=== PATIENT | male | born 2000 | race Caucasian/White ===

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

== ENCOUNTER 2020-06-28 13:10 | Emergency (ER) | payer BC, SELFPAY ==
[2020-06-28 13:20] VITALS: BP 147/96; PULSE 87; RESP 19; TEMP 36.8; O2SAT 98; BMI 34.0
--- NOTE | 2020-06-28 13:30 | XR_ITS ---
PROCEDURE: XR HAND RT MIN 3V CLINICAL INDICATION: INJURED THUMB Pain COMPARISON: CR HANDL3 HAND-LT-3 VIEWS from 04/13/2015 FINDINGS: No fracture or dislocation. No lytic or blastic change. There is normal mineralization. The joint spaces are well-preserved. No significant degenerative/arthritic changes. No erosive changes evident. Other findings:None. IMPRESSION: No acute findings. Dictated by: Kenroy Lubin MD 06/28/2020 14:13 Kenroy Lubin MD in [place] 06/28/2020 14:13
--- NOTE | 2020-06-28 13:47 | HMH.EDUTC ---
[facility] – [place], [place] Disposition Clinical Impression: Nailbed contusion, finger Qualifiers: Encounter type: initial encounter Qualified Code(s): S60.10XA - Contusion of unspecified finger with damage to nail, initial encounter Disposition: Home, Self-Care Condition on Discharge: Good Instructions: How To Perform RICE (Rest, Ice, Compress, Elevate) Additional Instructions: *RICE, Rest the extremity, Ice 15-20 minutes 3-4 times daily, Compress- wear the kody wrap as discussed as much as possible to help reduce swelling and pain, Elevate the extremity when at rest *Kody wrap/Finger splint is for support and help control swelling, use it except in the shower. Be sure that is not to tight but not to loose either *Elevate when resting *Ibuprofen every 6-8 hours as needed for pain an inflammation. If need something more can take Tylenol in between doses of Ibuprofen to help Immediately follow up with your family doctor for new or worsening of symptoms, or no noticeable improvement over the next 3-5 days Follow up with Family Doctor if needed Return if needed Do not pick or pull at your fingernail it may fall off Referrals: Elivra Gamboa MD [Primary Care Provider] - As needed Forms: Work/School Release Time of Disposition: 14:28 Medical Decision Making - Fede Inquiry Pt receiving controlled substance: No Fede was queried for this patient: No Vital Signs: 06/28/20 13:20 Temperature 98.2 F Temperature Source Oral Pulse Rate [Right Brachial] 87 Respiratory Rate 19 Blood Pressure [Right Arm] 147/96 H Blood Pressure Mean [Right Arm] 113 Blood Pressure Source [Right Arm] Automatic Cuff Blood Pressure Position [Right Arm] Sitting 02 Sat by Pulse Oximetry 98 Oxygen Delivery Method Room Air [facility] – [place], [place] HPI - General Stated complaint: AO [id number] rt thumb injury Time Seen by Provider: 06/28/20 13:51 Mode of Arrival: Ambulatory Source of Information: Patient Limitations: No Limitations Description of Symptoms (Recalled from Triage Doc. by RN): PATIENT C/O PAIN AND BRUISING TO RIGHT THUMB AFTER HE SMASHED IT IN VEHICLE DOOR LAST NIGHT AT 2130 HEENT Symptoms (Recalled from RN notes): No Resp Symptoms (Recalled from RN notes): No Skin Symptoms (Recalled from RN notes): No MS Symptoms (Recalled from RN notes): Yes Functional Status (Recalled from RN notes): WNL - History of Present Illness Provider Complaint: Patient state that he accidnently shut his thumb up in door last night around 930pm State that ever since he has been having throbbing pressure like feeling in right thumbnail and noticed under his fingernail looked black and hurts when he bends his thumb so he came in to get it checked - Related Data Home Medications Medication Instructions Recorded Confirmed lisinopriL [Lisinopril] 20 mg PO DAILY 06/28/20 06/28/20 Allergies Allergy/AdvReac Type Severity Reaction Status Date / Time No Known Allergies Allergy Unverified 01/23/17 15:11 - Worker's Comp Is this a Worker's Comp case?: No [facility] History - Hepatitis A Screen Drug use history?: No High risk sexual behaviors?: No History of sexually transmitted infection?: No Currently employed?: No Childcare worker?: No Do you have indoor plumbing?: Yes Do you have electricity?: Yes Attestation statement:: This patient has been screened for Hepatitis A risk factors. I have reviewed the patient's past medical history: Yes Medical History: Denies:: Diabetes Mellitus Type 1, Diabetes Mellitus Type 2 Laterality Cases: Bilateral: Myringotomy (Ear Tubes), Tonsillectomy - Social History Alcohol Intake: never Occupational Status: other ROS Obtained: Yes All systems reviewed & no additional complaints, Yes Systems reviewed as appropriate & no additional complaints - Constitutional Constitutional: Reports system reviewed and no additional complaints, except as docu - ENT Ears, Nose, Mouth, and Throat: Reports system reviewed and no additional complaints, except as docu -
[2020-06-28 14:34] VITALS: BP 147/96; PULSE 87; RESP 19; TEMP 36.8; O2SAT 98
== END 2020-06-28 14:36 | disposition home or self-care (01) ==
PROVIDERS: Emergency Provider Nurse Practitioner; PCP Family Medicine
DX: S60.111A Contusion of right thumb with damage to nail, initial encounter (principal); W23.0XXA Caught, crushed, jammed, or pinched between moving objects, initial encounter; Y92.89 Other specified places as the place of occurrence of the external cause; I10 Essential (primary) hypertension
CPT/HCPCS: 11740; 73130; 99202; G0463

== ENCOUNTER 2021-02-12 15:32 | Emergency (ER) | payer BC, SELFPAY ==
--- NOTE | 2021-02-12 16:49 | XR_ITS ---
PROCEDURE INFORMATION: Exam: XR Left Hand Exam date and time: 02/12/2021 4:49 PM Age: 20 years old Clinical indication: Injury or trauma; Fall; Blunt trauma (contusions or hematomas); Wrist; Left; Injury date: 02/10/21 TECHNIQUE: Imaging protocol: XR Left hand. Views: 3 or more views. COMPARISON: CR HANDL3 HAND-LT-3 VIEWS* 04/13/2015 6:49 PM FINDINGS: Bones/joints: Bones appear intact and normally aligned with normal mineralization. No significant arthritic deformities. There are no lytic skeletal lesions seen. Soft tissues: Soft tissue swelling. No radiopaque foreign bodies. No pathologic soft tissue calcification. IMPRESSION: No acute fracture or dislocation.
--- NOTE | 2021-02-12 16:49 | XR_ITS ---
PROCEDURE INFORMATION: Exam: XR Left Wrist Exam date and time: 02/12/2021 4:49 PM Age: 20 years old Clinical indication: Injury or trauma; Fall; Blunt trauma (contusions or hematomas); Wrist; Left; Injury date: 02/10/21 TECHNIQUE: Imaging protocol: XR Left wrist. Views: 3 or more views. COMPARISON: CR WRL3 WRIST-3 VIEWS-LT 11/05/2014 9:46 AM FINDINGS: Bones/joints: Bones appear intact and normally aligned with normal mineralization. No significant arthritic deformities. There are no lytic skeletal lesions seen. Soft tissues: Soft tissue swelling. No radiopaque foreign bodies. No pathologic soft tissue calcification. IMPRESSION: No acute fracture or dislocation.
[2021-02-12 17:50] VITALS: BP 164/90; PULSE 84; RESP 18; TEMP 36.7; O2SAT 99; BMI 35.9
--- NOTE | 2021-02-12 18:15 | HMH.EDUTC ---
[facility] – [place] Clinical Impression: Wrist sprain Qualifiers: Encounter type: initial encounter Laterality: left Qualified Code(s): S63.502A - Unspecified sprain of left wrist, initial encounter Disposition: Home, Self-Care Condition on Discharge: Good Instructions: Wrist Sprain, DI for Wrist Sprain, How To Perform RICE (Rest, Ice, Compress, Elevate) Additional Instructions: *RICE, Rest the extremity, Ice 15-20 minutes 3-4 times daily, Compress- wear the kody wrap as discussed as much as possible to help reduce swelling and pain, Elevate the extremity when at rest *Kody wrap/Velcro wrist splint is for support and help control swelling, use it except in the shower. Be sure that is not to tight but not to loose either *Elevate when resting *Ibuprofen every 6-8 hours as needed for pain an inflammation. If need something more can take Tylenol in between doses of Ibuprofen to help Immediately follow up with your family doctor for new or worsening of symptoms, or no noticeable improvement over the next 3-5 days Referrals: Elvira Gamboa MD [Primary Care Provider] - As needed Time of Disposition: 18:25 Medical Decision Making - Fede Inquiry Pt receiving controlled substance: No Fede was queried for this patient: No Vital Signs: 02/12/21 17:50 02/12/21 18:28 Temperature 98.1 F 98.1 F Temperature Source Oral Pulse Rate 84 Pulse Rate [Right Brachial] 84 Respiratory Rate 18 18 Blood Pressure 164/90 H Blood Pressure [Right Arm] 164/90 H Blood Pressure Mean [Right Arm] 114 Blood Pressure Source [Right Arm] Automatic Cuff Blood Pressure Position [Right Arm] Sitting 02 Sat by Pulse Oximetry 99 Oxygen Delivery Method Room Air - Radiology Data #1 Image(s): Hand (left) Image Reviewed: Yes I have reviewed radiologist's interpretation Preliminary Findings: No Fracture Seen IMPRESSION: No acute fracture or dislocation. #2 Image(s): Wrist (left) Image Reviewed: Yes I have reviewed radiologist's interpretation Preliminary Findings: No Fracture Seen IMPRESSION: No acute fracture or dislocation. [facility] [place] HPI - General Stated complaint: a/o fell down stairs 02/10 knot on left wrist Time Seen by Provider: 02/12/21 18:16 Mode of Arrival: Ambulatory Source of Information: Patient Limitations: No Limitations Description of Symptoms (Recalled from Triage Doc. by RN): PATIENT C/O PAIN TO LEFT FOREARM/WRIST AFTER FALLING DOWN STEPS SUNDAY NIGHT HEENT Symptoms (Recalled from RN notes): No Resp Symptoms (Recalled from RN notes): No Skin Symptoms (Recalled from RN notes): No MS Symptoms (Recalled from RN notes): Yes Functional Status (Recalled from RN notes): WNL - History of Present Illness Provider Complaint: Patient state that on he slipped and fell and landed on his left wrist State that ever since he feels like he has a knot on the wrist and hurts with certain ways he moves it State that today he went to lift something and had pain so he came in to get it checked - Related Data Home Medications Medication Instructions Recorded Confirmed lisinopriL [Lisinopril] 20 mg PO DAILY 06/28/20 06/28/20 Allergies Allergy/AdvReac Type Severity Reaction Status Date / Time No Known Allergies Allergy Unverified 01/23/17 15:11 - Worker's Comp Is this a Worker's Comp case?: No [facility] History - Hepatitis A Screen Drug use history?: No High risk sexual behaviors?: No History of sexually transmitted infection?: No Currently employed?: No Childcare worker?: No Do you have indoor plumbing?: Yes Do you have electricity?: Yes Attestation statement:: This patient has been screened for Hepatitis A risk factors. I have reviewed the patient's past medical history: Yes Medical History: Denies:: Diabetes Mellitus Type 1, Diabetes Mellitus Type 2 Laterality Cases: Bilateral: Myringotomy (Ear Tubes), Tonsillectomy - Social History Alcohol Intake: never Occupational Status: other ROS Obta
[2021-02-12 18:28] VITALS: BP 164/90; PULSE 84; RESP 18; TEMP 36.7; O2SAT 99
--- NOTE | 2021-02-12 18:38 | PC.NURSE ---
PATIENT EDUCATED ON WEARING VELCRO WRIST SPLINT. PATIENT ADVISED TO WATCH FOR CIRCULATION ISSUES TO HAND AND TO LOOSEN/REMOVE SPLINT IF NEEDED
== END 2021-02-12 18:38 | disposition home or self-care (01) ==
PROVIDERS: Emergency Provider Nurse Practitioner; PCP Family Medicine
DX: S63.502A Unspecified sprain of left wrist, initial encounter (principal); W10.9XXA Fall (on) (from) unspecified stairs and steps, initial encounter; Y92.019 Unspecified place in single-family (private) house as the place of occurrence of the external cause
CPT/HCPCS: 29125; 73110; 73130; 99202; G0463

== ENCOUNTER 2021-03-05 14:09 | Emergency (ER) | payer BC, SELFPAY ==
--- NOTE | 2021-03-05 14:51 | XR_ITS ---
PROCEDURE INFORMATION: Exam: XR Chest Exam date and time: 03/05/2021 2:51 PM Age: 21 years old Clinical indication: Pain; Chest pressure; Patient HX: C. P. , Stiffness; Additional info: SOB TECHNIQUE: Imaging protocol: XR of the chest. Views: 2 views. COMPARISON: CSWO CT CERVICAL SPINE W/O CONT 09/18/2015 2:03 AM FINDINGS: Lungs: Unremarkable. No consolidation. Pleural spaces: Unremarkable. No pleural effusion. No pneumothorax. Heart/Mediastinum: Unremarkable. No cardiomegaly. Bones/joints: Unremarkable. IMPRESSION: No acute findings.
[2021-03-05 14:53] VITALS: BP 143/91; PULSE 95; RESP 18; TEMP 37; O2SAT 96; BMI 35.9
--- NOTE | 2021-03-05 15:13 | HMH.EDUTC ---
[facility] – [place] Disposition Clinical Impression: Acute bronchitis Qualifiers: Bronchitis organism: unspecified organism Qualified Code(s): J20.9 - Acute bronchitis, unspecified Thoracic back pain Qualifiers: Chronicity: acute Back pain laterality: bilateral Qualified Code(s): M54.6 - Pain in thoracic spine Disposition: Home, Self-Care Condition on Discharge: Good Instructions: Acute Bronchitis, DI for Acute Bronchitis, DI for COVID-19 (Suspected or Confirmed ), Preventing the Spread of Coronavirus Discharge Instructions Additional Instructions: Drink plenty of fluids. Take tylenol or ibuprofen for pain or fever. Take the medications as directed. Follow up with your regular doctor. GO TO THE ER FOR ANY WORSENING SYMPTOMS Quarantine until you know the results of your covid-19 test. Notify your school or workplace of your results and follow their instructions regarding return to work/school. Prescriptions: Brompheniramine/Pseudoephed/Dm [Bromfed Dm Cough Syrup] 5 ml PO Q6HP PRN #240 ml PRN Reason: Cough Transmission Status: Received by [facility] Amoxicillin/Potassium Clav [Augmentin 875-125 Tablet] 1 tab PO Q12H 10 Days #20 tab Transmission Status: Received by [facility] methylPREDNISolone [Medrol] 4 mg PO DIRECTED 6 Days #21 packet Transmission Status: Received by [facility] guaiFENesin [Mucinex 600mg tablet] 1 - 2 tab PO BIDP PRN #30 tab PRN Reason: Congestion Transmission Status: Received by [facility] Referrals: Elvira Gamboa MD [Primary Care Provider] - Forms: Work/School Release Time of Disposition: 15:47 Medical Decision Making - Medical Records Medical records reviewed: No: I reviewed the patient's medical records. - Fede Inquiry Pt receiving controlled substance: No Vital Signs: 03/05/21 14:53 03/05/21 15:55 Temperature 98.6 F 98.6 F Temperature Source Oral Pulse Rate 95 H Pulse Rate [Left] 95 H Respiratory Rate 18 18 Blood Pressure 143/91 H Blood Pressure [Right Arm] 143/91 H Blood Pressure Mean [Right Arm] 108 02 Sat by Pulse Oximetry 96 - Lab Data Lab results reviewed: Yes: I reviewed the patient's lab results. [facility] [place] HPI - General Stated complaint: upper back pain Time Seen by Provider: 03/05/21 15:14 Mode of Arrival: Ambulatory Source of Information: Patient Limitations: No Limitations Description of Symptoms (Recalled from Triage Doc. by RN): pt c/o SOA and back pain. pt is concerned he may have pneumonia. HEENT Symptoms (Recalled from RN notes): No Resp Symptoms (Recalled from RN notes): Yes (SOA) Skin Symptoms (Recalled from RN notes): No MS Symptoms (Recalled from RN notes): No Functional Status (Recalled from RN notes): wnl - History of Present Illness Provider Complaint: He c/o pleuritic type pain in his middle back for the past 2 days. He has a cough and chest congestion also. He has a history of getting pneumonia easily so he came in to be checked. He denies fever but he has had some chilling. He has been vaccinated against covid-19. - Related Data Home Medications Medication Instructions Recorded Confirmed lisinopriL [Lisinopril] 20 mg PO DAILY 06/28/20 06/28/20 Previous Rx's Medication Instructions Recorded Amoxicillin/Potassium Clav 1 tab PO Q12H 10 Days #20 tab 03/05/21 [Augmentin 875-125 Tablet] Brompheniramine/Pseudoephed/Dm 5 ml PO Q6HP PRN #240 ml 03/05/21 [Bromfed Dm Cough Syrup] guaiFENesin [Mucinex 600mg tablet] 1 - 2 tab PO BIDP PRN #30 tab 03/05/21 methylPREDNISolone [Medrol] 4 mg PO DIRECTED 6 Days #21 03/05/21 packet Allergies Allergy/AdvReac Type Severity Reaction Status Date / Time No Known Allergies Allergy Unverified 01/23/17 15:11 - Worker's Comp Is this a Worker's Comp case?: No [facility] History - Hepatitis A Screen Drug use history?: No High risk sexual behaviors?: No History of sexually transmitted infection?: No Currently employed?: No
[2021-03-05 15:55] VITALS: BP 143/91; PULSE 95; RESP 18; TEMP 37
== END 2021-03-05 16:06 | disposition home or self-care (01) ==
PROVIDERS: Emergency Provider Nurse Practitioner Family; PCP Family Medicine
DX: J20.9 Acute bronchitis, unspecified (principal); M54.6 Pain in thoracic spine
CPT/HCPCS: 71046; 99202; C9803; G0463; U0003; U0005

== ENCOUNTER 2021-04-05 17:53 | Emergency (ER) | payer OTHER, SELFPAY ==
[2021-04-05 18:03] VITALS: BMI 25.0
--- NOTE | 2021-04-05 18:03 | XR_ITS ---
PROCEDURE INFORMATION: Exam: XR Right Foot Exam date and time: 04/05/2021 6:03 PM Age: 21 years old Clinical indication: Injury or trauma; Blunt trauma; Injury details: Horse stepped on right foot yesterday. Right fifth toe pain. ; Additional info: Horse stepped on foot TECHNIQUE: Imaging protocol: XR Right foot. Views: 3 or more views. COMPARISON: CR TIBIART XR tibia fibula RT 2V 02/08/2018 1:12 PM FINDINGS: Bones/joints: Normal. Soft tissues: Normal. IMPRESSION: No acute findings.
[2021-04-05 18:32] VITALS: BP 140/90; PULSE 88; RESP 16; TEMP 37.1; O2SAT 98; BMI 33.3
--- NOTE | 2021-04-05 18:58 | HMH.EDUTC ---
[facility] – [place] Disposition Clinical Impression: Foot contusion Qualifiers: Encounter type: initial encounter Laterality: right Qualified Code(s): S90.31XA - Contusion of right foot, initial encounter Disposition: Home, Self-Care Condition on Discharge: Good Instructions: How To Perform RICE (Rest, Ice, Compress, Elevate) Additional Instructions: *weight bearing as tolerated *RICE, Rest the extremity, Ice 15-20 minutes 3-4 times daily, Compress- wear the kody wrap as discussed as much as possible to help reduce swelling and pain, Elevate the extremity when at rest *Kody wrap and tia tape is for support and help control swelling, use it except in the shower. Be sure that is not to tight but not to loose either *Elevate when resting *Ibuprofen as directed on package every 6-8 hours as needed for pain an inflammation. If need something more can take Tylenol in between doses of Ibuprofen to help Immediately follow up with your family doctor for new or worsening of symptoms, or no noticeable improvement over the next 3-5 days Referrals: Elvira Gamboa MD [Primary Care Provider] - As needed Time of Disposition: 19:10 Medical Decision Making - Fede Inquiry Pt receiving controlled substance: No Fede was queried for this patient: No Vital Signs: 04/05/21 18:32 Temperature 98.7 F Temperature Source Oral Pulse Rate [Right] 88 Respiratory Rate 16 Blood Pressure [Right Arm] 140/90 Blood Pressure Mean [Right Arm] 106 Blood Pressure Source [Right Arm] Automatic Cuff Blood Pressure Position [Right Arm] Sitting 02 Sat by Pulse Oximetry 98 Oxygen Delivery Method Room Air - Radiology Data #1 Image(s): Foot/Toes Image Reviewed: Yes I have reviewed radiologist's interpretation IMPRESSION: No acute findings. [facility] [place] HPI - General Stated complaint: wc 04/04@0800 HORSE STEPPED r FOOT Time Seen by Provider: 04/05/21 18:58 Mode of Arrival: Ambulatory Source of Information: Patient Limitations: No Limitations Description of Symptoms (Recalled from Triage Doc. by RN): pt advises a horse stepped on his right foot yesterday morning. Pt has bruising and minor swelling around the pinky and 3rd toe. +PMS HEENT Symptoms (Recalled from RN notes): No Resp Symptoms (Recalled from RN notes): No Skin Symptoms (Recalled from RN notes): No MS Symptoms (Recalled from RN notes): Yes (right foot injury) Functional Status (Recalled from RN notes): na - History of Present Illness Provider Complaint: Patient states that he was working with a horse yesterday when it stepped on his right foot and kind of twisted a little States that he has been having bruising and swelling in his 3-4 toe ever since and pain in the top of his foot State that today he was on his feet alot so this evening he came in to get it checked - Related Data Home Medications Medication Instructions Recorded Confirmed lisinopriL [Lisinopril] 20 mg PO DAILY 06/28/20 06/28/20 Previous Rx's Medication Instructions Recorded Amoxicillin/Potassium Clav 1 tab PO Q12H 10 Days #20 tab 03/05/21 [Augmentin 875-125 Tablet] Brompheniramine/Pseudoephed/Dm 5 ml PO Q6HP PRN #240 ml 03/05/21 [Bromfed Dm Cough Syrup] guaiFENesin [Mucinex 600mg tablet] 1 - 2 tab PO BIDP PRN #30 tab 03/05/21 methylPREDNISolone [Medrol] 4 mg PO DIRECTED 6 Days #21 03/05/21 packet Allergies Allergy/AdvReac Type Severity Reaction Status Date / Time No Known Allergies Allergy Unverified 01/23/17 15:11 - Worker's Comp Is this a Worker's Comp case?: No [facility] History - Hepatitis A Screen Drug use history?: No High risk sexual behaviors?: No History of sexually transmitted infection?: No Currently employed?: No Childcare worker?: No Do you have indoor plumbing?: Yes Do you have electricity?: Yes Attestation statement:: This patient has been screened for Hepatitis A risk factors. I have reviewed the patient's past medical history: Yes Medical History: Denies:: Diabetes Mellitus
[2021-04-05 19:18] VITALS: BP 145/70; PULSE 116; RESP 16; TEMP 36.7
== END 2021-04-05 19:19 | disposition home or self-care (01) ==
PROVIDERS: Emergency Provider Nurse Practitioner; PCP Family Medicine
DX: S90.31XA Contusion of right foot, initial encounter (principal); W55.19XA Other contact with horse, initial encounter; Y92.69 Other specified industrial and construction area as the place of occurrence of the external cause; Y99.0 Civilian activity done for income or pay
CPT/HCPCS: 73630; 99212; G0463

== ENCOUNTER 2022-01-04 19:57 | Emergency (ER) | payer OTHER, BC, SELFPAY ==
[2022-01-04 19:58] VITALS: BP 146/77; PULSE 85; RESP 16; TEMP 36.9; O2SAT 98; BMI 37.8
--- NOTE | 2022-01-04 22:03 | XR_ITS ---
PROCEDURE INFORMATION: Exam: XR Left Forearm Exam date and time: 01/04/2022 10:08 PM Age: 21 years old Clinical indication: Pain; Lower or forearm; Patient HX: Shut arm in tail gate, left forearm; Additional info: Accident TECHNIQUE: Imaging protocol: Radiologic exam of the Left forearm. Views: 2 views. COMPARISON: CR XR WRIST LT MIN 3V 02/12/2021 4:53 PM FINDINGS: Bones/joints: No fractures. Proximal and distal radioulnar alignment is normal. Elbow joint alignment is normal. Carpal relationships are normal. No blastic or lytic lesions. No elbow joint effusion. No gross wrist joint effusion. No articular erosions. Soft tissues: No periostitis or osteolysis. No gross soft tissue abnormalities. No radiopaque foreign bodies are identified. Other findings: Normal mineralization. IMPRESSION: No acute findings.
--- NOTE | 2022-01-04 22:03 | XR_ITS ---
PROCEDURE INFORMATION: Exam: XR Left Wrist Exam date and time: 01/04/2022 10:09 PM Age: 21 years old Clinical indication: Pain; Wrist; Patient HX: Shut left forearm in tailgate; Additional info: Accident TECHNIQUE: Imaging protocol: Radiologic exam of the Left wrist. Views: 3 or more views. COMPARISON: CR XR WRIST LT MIN 3V 02/12/2021 4:53 PM FINDINGS: Bones/joints: No fractures. Carpal relationships are normal. Distal radioulnar alignment is normal. No blastic or lytic lesions. No gross erosive changes. Soft tissues: No periostitis or osteolysis. No gross soft tissue abnormalities. No radiopaque foreign bodies. Other findings: Clenched fist views obtained. IMPRESSION: No acute findings.
--- NOTE | 2022-01-04 23:29 | [facility].EDUPEXT ---
Discharge Plan Disposition Patient Disposition: Home, Self-Care Chief Complaint: Extremity Injury, Upper Prescriptions Prescriptions: No Action lisinopril 20 MG tablet 20 mg PO DAILY methylprednisolone 4 MG tablets,dose pack 4 mg PO DIRECTED 6 Days Qty: 21 0RF spkcmheipscywrm-hcgwbdbmj-GE 118 ML syrup 5 ml PO Q6HP PRN (Reason: Cough) Qty: 240 0RF amoxicillin-pot clavulanate 1 EACH tablet 1 tab PO Q12H 10 Days Qty: 20 0RF guaifenesin 600 MG tablet extended release 12hr 1 - 2 tab PO BIDP PRN (Reason: Congestion) Qty: 30 0RF Referrals Follow up/Referrals: Elvira Gamboa MD [Primary Care Provider] - See instructions Clinical Impressions Clinical Impression: Contusion of forearm, left, Sprain and strain of wrist Instructions Patient Instructions: Sprain, Forearm Fracture, DI for Wrist Strain Discharge ED Provider: Jerrod Washington Upper Extremity HPI General Chief Complaint: Extremity Injury, Upper Stated Complaint: [id number],left arm smashed in tailage Time Seen by Provider: 01/04/22 23:29 Mode of Arrival: Ambulatory Source of Information: Patient and Medical Record Limitations: No Limitations Description of Symptoms (Recalled from ER Triage Doc. by RN): pt states this morning a co worker close a tailgate on lt forearm. pt c/o lt forearm pain History of Present Illness HPI narrative: acute injury lt wrist and forearm at work - as described above complaint: injury to: left, forearm and wrist Onset (ago): hour(s) Other Extremity Injury: Left: wrist and forearm Other injuries: none Handedness: right Place: work Severity: moderate Context: direct blow Associated symptoms: denies other symptoms Related Data Home Medications Medication Instructions Recorded Confirmed lisinopril 20 mg tablet 20 mg PO DAILY Hypertension 06/28/20 06/28/20 Previous Rx's Medication Instructions Recorded amoxicillin 875 mg-potassium 1 tab PO Q12H 10 days #20 tabs 03/05/21 clavulanate 125 mg tablet kasofxwxcqcmvmo-loatcacctqvissm-EG 5 ml PO Q6HP PRN Cough #240 mL 03/05/21 2 mg-30 mg-10 mg/5 mL oral syrup guaifenesin 600 mg tablet, 1 - 2 tab PO BIDP PRN Congestion 03/05/21 extended release 12 hr #30 tabs methylprednisolone 4 mg tablets in 4 mg PO DIRECTED 6 days #21 03/05/21 a dose pack packets Allergies Allergy/AdvReac Type Severity Reaction Status Date / Time No Known Allergies Allergy Unverified 01/23/17 15:11 [facility] Disclaimer: The information contained in this section may have been updated after the patient was seen, as this information can be updated by other users. Social History Smoking Status: Never smoker alcohol intake: never current occupational status: other Travel in the last 8 weeks: None ROS Obtained: Yes All systems reviewed & no additional complaints except as documented Physical Exam General General appearance: alert Head Head exam: normocephalic Eye Eye exam: Present PERRL and EOMI ENT ENT exam: Present mucous membranes moist Neck Neck exam: Present trachea midline Respiratory Respiratory exam: Absent respiratory distress Cardiovascular Cardiovascular exam: Present regular rate Expanded Upper Extremity Exam Left: Forearm/Wrist exam: Present tenderness and swelling; Absent full ROM or tenderness over anatomical snuff box Neurological Exam Neurological exam: Present alert, oriented X3 and CN II-XII intact Skin Skin exam: Present warm Medical Decision Making Medical Records Medical records reviewed: Yes I reviewed the patient's medical records. Fede Inquiry Pt receiving controlled substance: No Vital Signs: 01/04/22 19:58 Temperature 98.5 F Temperature Source Oral Pulse Rate [Right] 85 Respiratory Rate 16 Blood Pressure [Right Arm] 146/77 H Blood Pressure Mean [Right Arm] 100 02 Sat by Pulse Oximetry 98 Lab Data Lab results reviewed: Yes I reviewed the patient's lab results. Orders (Tests/Med
[2022-01-04 23:38] VITALS: BP 145/81; PULSE 80; RESP 16; TEMP 36.9; O2SAT 99
== END 2022-01-04 23:45 | disposition home or self-care (01) ==
PROVIDERS: Emergency Provider Emergency Medicine; PCP Family Medicine
DX: S50.12XA Contusion of left forearm, initial encounter (principal); S63.502A Unspecified sprain of left wrist, initial encounter; W23.0XXA Caught, crushed, jammed, or pinched between moving objects, initial encounter; Y99.0 Civilian activity done for income or pay
CPT/HCPCS: 73090; 73110; 99213; G0463